=== PATIENT | female | born 1990 | race Caucasian/White ===

== ENCOUNTER 2019-01-19 16:31 | Emergency (ER) | payer SELFPAY ==
[2019-01-19] MEDS ORDERED: MORPHINE 4 MG/ML SYR ONE (16:57)
[2019-01-19] MEDS ORDERED: ONDANSETRON 4 MG/2 ML VIAL ONE (16:57)
[2019-01-19] MEDS ORDERED: NA CHLORIDE 0.9% 1,000 ML ONE (16:57)
[2019-01-19 17:07] LABS: Absolute Lymphocytes (CBC) 1.1 K/uL (0.7-4.9); Basophils % 0.4 % (0-1.3); Hematocrit 39.3 % (36.0-45.0); Lymphocytes % 14.1 % (15.3-44.8); MPV 8.2 fL (7.6-11.3); RBC Red Blood Cell Count 4.46 M/uL (3.86-4.86)
[2019-01-19 17:20] LABS: Potassium 3.9 mmol/L (3.5-5.1)
--- NOTE | 2019-01-19 17:39 | RAD REPORT ---
EXAM DESCRIPTION: CT - Soft Tissue Neck W/Contr CLINICAL HISTORY: Pain and swelling to left jaw - unable to swallow COMPARISON: No comparisons TECHNIQUE All CT scans are performed using dose optimization technique as appropriate and may includ e automated exposure control or mA/KV adjustment according to patient size. FINDINGS: Significant soft tissue swelling is seen about the left aspect of the face mandible. There is reticulation of the subcutaneous fat and skin thickening present. A subperiosteal abscess is like ly present along the anterior margin of the mandible measuring 3 mm in thickness an 18 mm in transver se dimension. Clear etiology for this is not well delineated but may be odontogenic in origin. Mild a djacent soft tissue is present within the inflamed fat, likely enlarged lymph nodes. Multiple enlarged lymph nodes are present in the level I and level II chain. These are likely reactiv e in nature. No prevertebral abscess seen. IMPRESSION: Significant soft tissue swelling is seen about the left aspect of the mandible with subp eriosteal abscess suspected anteriorly as described.
[2019-01-19] MEDS ORDERED: METHYLPREDNISOLONE 125 MG INJ ONE (18:05)
[2019-01-19] MEDS ORDERED: HYDROCODONE/APAP 10/325 TAB ONE (18:06)
[2019-01-19] MEDS ORDERED: METRONIDAZOLE 500mg IVPB 500 MG/100 ML BAG IV ONE (18:07)
[2019-01-19] MEDS ORDERED: CLINDAMYCIN 900MG/D5W 900 MG/50 ML IVPB IV ONE (18:07)
--- NOTE | 2019-01-19 18:22 | EDPHYS ---
Physician Documentation [facility] Name: Chana Penaloza Age: 28 yrs Sex: Female : 1990 Arrival Date: 01/19/2019 Time: 16:34 Bed 14 Private MD: ED Physician Fracisco Weller HPI: 01/19 16:52 This 28 yrs old Female presents to ER via Ambulatory with complaints of Left kdr jaw Facial Swelling. 18:08 The patient presents with pain, swelling. The problem is located in the lower left kdr second molar, lower left first molar, lower left second bicuspid and left submandibular area. Onset: The symptoms/episode began/occurred suddenly, gradually, yesterday. Duration: The symptoms are continuous, and are steadily getting worse. Modifying factors: The symptoms are alleviated by nothing, the symptoms are aggravated by chewing, food, Swallowing. Associated signs and symptoms: The patient has no apparent associated signs or symptoms. Severity of symptoms: At their worst the symptoms were moderate, in the emergency department the symptoms are unchanged. The patient has not experienced similar symptoms in the past. The patient has not recently seen a physician. 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 - Social history:: Smoking status: Patient/guardian denies using tobacco. - Ebola Screening: : No symptoms or risks identified at this time. ROS: 18:08 Constitutional: Negative for fever, chills, and weight loss, Eyes: Negative for injury, kdr pain, redness, and discharge, Neck: Negative for injury, pain, and swelling, Cardiovascular: Negative for chest pain, palpitations, and edema, Respiratory: Negative for shortness of breath, cough, wheezing, and pleuritic chest pain, Abdomen/GI: Negative for abdominal pain, nausea, vomiting, diarrhea, and constipation, Back: Negative for injury and pain. 18:08 ENT: Positive for dental pain, difficulty swallowing, of the left cheek and left mandible. Exam: 18:08 Constitutional: This is a well developed, well nourished patient who is awake, alert, kdr and in no acute distress. Eyes: Pupils equal round and reactive to light, extra-ocular motions intact. Lids and lashes normal. Conjunctiva and sclera are non-icteric and not injected. Cornea within normal limits. Periorbital areas with no swelling, redness, or edema. Neck: Trachea midline, no thyromegaly or masses palpated, and no cervical lymphadenopathy. Supple, full range of motion without nuchal rigidity, or vertebral point tenderness. No Meningismus. Chest/axilla: Normal chest wall appearance and motion. Nontender with no deformity. No lesions are appreciated. 18:08 ENT: Mouth: Lips: normal, Oral mucosa: normal, moderate swelling and tenderness to left mandible, No pain or swelling to left parotid gland/salivary gland.. Vital Signs: 16:38 BP 109 / 73; Pulse 89; Resp 16; Temp 97.6; Pulse Ox 100% ; Weight 54.43 kg; Height 5 la1 ft. 1 in. (154.94 cm); 16:38 Body Mass Index 22.67 (54.43 kg, 154.94 cm) la1 MDM: 18:08 Data reviewed: vital signs, nurses notes, lab test result(s), radiologic studies. kdr Counseling: I had a detailed discussion with the patient and/or guardian regarding: the historical points, exam findings, and any diagnostic results supporting the discharge/admit diagnosis, lab results, radiology results, the need for outpatient follow up. Special discussion: I discussed with the patient/guardian in detail that at this point there is no indication for admission to the hospital. It is understood, however, that if the symptoms persist or worsen the patient needs to return immediately for re-evaluation. 18:21 Patient medically screened. kdr 01/19 16:51 Order name: CBC with Diff; Complete Time: 17:47 kdr 01/19 16:51 Order name: Chem 7; Complete Time: 17:47 kdr 01/19 16:51 Order name: CT Soft Tissue Neck W/contr; Complete Time: 17:47 kdr Administered Medications: 17:00 Drug: NS 0.9% 1000 ml Route: IV; Rate: 1 bolus; Site: right antecubital; tr5 17:01 Drug: morphine 4 mg {Note: RASS:0.} Route: IVP; Site: right antecubital; tr5 17:30 Follow up: Response: Pain is decreased tr5 17:01 Drug: Zofran 4 mg Route: IVP; Site: right antecubital; tr5 18:21 Follow up: Response: Marked relief of symptoms tr5 18:12 Drug: Clindamycin 900 mg Route: IVPB; Infused Over: 30 mins; Site: right antecubital; tr5 18:13 Drug: [place] 10 mg-325 mg 1 tabs {Note: RASS:0.} Route: PO; tr5 18:20 Drug: SOLU-Medrol 125 mg Route: IVP; Site: right antecubital; tr5 18:21 Drug: Flagyl 500 mg Route: PO; tr5 Disposition: 01/19/19 18:21 Discharged to Home. Impression: Dental Abscess left mandible. - Condition is Stable. - Discharge Instructions: Dental Pain, [id number], Dental Abscess, [id number]. - Prescriptions for Augmentin 875- 125 mg Oral Tablet - take 1 tablet by ORAL route every 12 hours for 10 days; 20 tablet. Flagyl 500 mg Oral Tablet - take 1 tablet by ORAL route every 6 hours for 10 days; 40 tablet. Tylenol- Codeine #3 300-30 mg Oral Tablet - take 2 tablets by ORAL route every 6 hours As needed; 12 tablet. Medrol (Nabeel) 4 mg Oral Tablets, Dose Pack - take 1 tablet by ORAL route as directed - follow package instructions; 1 packet. - Medication Reconciliation Form, Thank You Letter, Antibiotic Education, Prescription Opioid Use, Work release form form. - Follow up: Private Physician; When: 2 - 3 days; Reason: If symptoms return, Further diagnostic work-up, Recheck today's complaints, Continuance of care, Re-evaluation by your physician. - Problem is new. - Symptoms have improved. Signatures: Dispatcher [employer] EDND Fracisco Weller MD MD kdr Attema, Lee, RN RN la1 Roberto Carlos Preston RN RN tr5 Corrections: (The following items were deleted from the chart) 19:19 18:21 01/19/2019 18:21 Discharged to Home. Impression: Dental Abscess left mandible. tr5 Condition is Stable. Discharge Instructions: Dental Abscess, [id number]. Prescriptions for Augmentin 875-125 mg Oral Tablet - take 1 tablet by ORAL route every 12 hours for 10 days; 20 tablet, Flagyl 500 mg Oral Tablet - take 1 tablet by ORAL route every 6 hours for 10 days; 40 tablet, Tylenol-Codeine #3 300-30 mg Oral Tablet - take 2 tablets by ORAL route every 6 hours As needed; 12 tablet, Medrol (Nabeel) 4 mg Oral Tablets, Dose Pack - take 1 tablet by ORAL route as directed - follow package instructions; 1 packet. and Forms are Medication Reconciliation Form, Thank You Letter, Antibiotic Education, Prescription Opioid Use. Follow up: Private Physician; When: 2 - 3 days; Reason: If symptoms return, Further diagnostic work-up, Recheck today's complaints, Continuance of care, Re-evaluation by your physician. Problem is new. Symptoms have improved. kdr
--- NOTE | 2019-01-19 18:22 | ER ---
Nurse's Notes [facility] Name: Chana Penaloza Age: 28 yrs Sex: Female : 1990 Arrival Date: 01/19/2019 Time: 16:34 Bed 14 Private MD: Diagnosis: Dental Abscess left mandible Presentation: 01/19 16:37 Presenting complaint: Patient states: I woke up with left sided facial swelling this la1 morning, hurts when I swallow or touch it. Transition of care: patient was not received from another setting of care. Onset of symptoms was January 19, 2019. Risk Assessment: Do you want to hurt yourself or someone else? Patient reports no desire to harm self or others. Initial Sepsis Screen: Does the patient meet any 2 criteria? No. Patient's initial sepsis screen is negative. Does the patient have a suspected source of infection? No. Patient's initial sepsis screen is negative. Care prior to arrival: None. 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 - Social history:: Smoking status: Patient/guardian denies using tobacco. - Ebola Screening: : No symptoms or risks identified at this time. Screenin:50 Abuse screen: Denies threats or abuse. Nutritional screening: No deficits noted. tr5 Tuberculosis screening: No symptoms or risk factors identified. Fall Risk None identified. Assessment: 16:50 General: Appears uncomfortable, Behavior is calm, cooperative, appropriate for age. tr5 Pain: Complains of pain in left jaw Pain does not radiate. Pain currently is 9 out of 10 on a pain scale. Quality of pain is described as aching, throbbing, Pain began gradually, Is continuous, Alleviated by nothing. Aggravated by eating, drinking. Neuro: Level of Consciousness is awake, alert, obeys commands, Oriented to person, place, time, Cement Sack Breaker are equal bilaterally Moves all extremities. Gait is steady. Cardiovascular: Heart tones present Capillary refill < 3 seconds Pulses are all present. Edema To L jaw. Respiratory: Airway is patent Respiratory effort is even, unlabored, Respiratory pattern is regular, symmetrical. GI: No signs and/or symptoms were reported involving the gastrointestinal system. : No signs and/or symptoms were reported regarding the genitourinary system. EENT: Poor dentition noted. Derm: Abscess located on left jaw. Musculoskeletal: No signs and/or symptoms reported regarding the musculoskeletal system. 18:00 Reassessment: Patient appears in no apparent distress at this time. Patient and/or tr5 family updated on plan of care and expected duration. Pain level reassessed. Patient is alert, oriented x 3, equal unlabored respirations, skin warm/dry/pink. Vital Signs: 16:38 BP 109 / 73; Pulse 89; Resp 16; Temp 97.6; Pulse Ox 100% ; Weight 54.43 kg; Height 5 la1 ft. 1 in. (154.94 cm); 16:38 Body Mass Index 22.67 (54.43 kg, 154.94 cm) la1 ED Course: 16:34 Patient arrived in ED. mr 16:37 Triage completed. la1 16:38 Fracisco Weller MD is Attending Physician. kdr 16:38 Arm band placed on left wrist. la1 16:50 Bed in low position. Call light in reach. Side rails up X 1. Adult w/ patient. tr5 16:50 Initial lab(s) drawn, by me, sent to lab. Inserted saline lock: 20 gauge in right tr5 antecubital area, using aseptic technique. 16:54 Roberto Carlos Preston, RN is Primary Nurse. tr5 17:[address] via wheelchair. tr5 17:24 CT Soft Tissue Neck W/contr In Process Unspecified. EDMS 17:27 CT completed. Patient tolerated procedure well. Note: consent for ct exam w/o upt bq signed. Patient moved back from CT. 19:17 No provider procedures requiring assistance completed. IV discontinued. tr5 Administered Medications: 17:00 Drug: NS 0.9% 1000 ml Route: IV; Rate: 1 bolus; Site: right antecubital; tr5 17:01 Drug: morphine 4 mg {Note: RASS:0.} Route: IVP; Site: right antecubital; tr5 17:30 Follow up: Response: Pain is decreased tr5 17:01 Drug: Zofran 4 mg Route: IVP; Site: right antecubital; tr5 18:21 Follow up: Response: Marked relief of symptoms tr5 18:12 Drug: Clindamycin 900 mg Route: IVPB; Infused Over: 30 mins; Site: right antecubital; tr5 18:13 Drug: [place] 10 mg-325 mg 1 tabs {Note: RASS:0.} Route: PO; tr5 18:20 Drug: SOLU-Medrol 125 mg Route: IVP; Site: right antecubital; tr5 18:21 Drug: Flagyl 500 mg Route: PO; tr5 Outcome: 18:21 Discharge ordered by . kellen 19:17 Discharged to home ambulatory. tr5 19:17 Condition: stable 19:17 Discharge instructions given to patient, Instructed on discharge instructions, follow up and referral plans. medication usage, Demonstrated understanding of instructions, follow-up care, medications, Prescriptions given X 4. 19:19 Patient left the ED. tr5 Signatures: Dispatcher [employer] EDMS Fracisco Weller MD MD kdr Rivera, Mary mr Quilty, Betty bq Attema, Lee, RN RN Roberto Carlos Rosado RN RN tr5
[2019-01-19 19:44] VITALS: BP 109/73; TEMP 97.6; O2SAT 100
== END 2019-01-19 19:19 | disposition home or self-care (01) ==
LOC: ER 16:31
DX: K04.7 Periapical abscess without sinus (principal)
CPT/HCPCS: 36415; 70491; 80048; 85025; 96374; 96375; 99284; J2405; J2930; J7030; Q9967

== ENCOUNTER 2019-05-26 12:07 | Emergency (ER) | payer SELFPAY ==
--- OUTSIDE RECORDS SUMMARY | 2019-05-26 12:09 | XMS REPORT ---
:1990 [facility] Address [address] [place] [address] Care Team Providers Name Role Phone Unavailable Unavailable Unavailable Problems This patient has no known problems. Allergies, Adverse Reactions, Alerts This patient has no known allergies or adverse reactions. Medications This patient has no known medications. Encounters Start End Encounter Admission Attending Care Care Encounter Date/Time Date/Time Type Type Clinicians Facility Department ID 2018-04-08 2018-04-08 Emergency [facility] MED [id number] 16:32:17 16:32:17 2018-04-08 2018-04-08 Emergency [facility] [id number] 16:31:11 16:31:11
[2019-05-26 12:43] LABS: Urine Blood NEGATIVE (NEG); Urine Glucose NEGATIVE (NEG); Urine Protein NEGATIVE (NEG); Urine Specific Gravity 1.025 (1.005-1.030); Urine pH 7.5 (5.0-7.0)
[2019-05-26 12:51] LABS: Absolute Lymphocytes (CBC) 1.3 K/uL (0.7-4.9); Basophils % 0.6 % (0-1.3); Lymphocytes % 15.9 % (15.3-44.8); MPV 8.1 fL (7.6-11.3); RBC Red Blood Cell Count 4.78 M/uL (3.86-4.86)
[2019-05-26 13:01] LABS: Potassium 3.8 mmol/L (3.5-5.1)
[2019-05-26 13:11] LABS: Urine Bacteria 20-50 /HPF (<20); Urine Culture Reflex Order REFLEXED; Urine Mucus 2+ /HPF (NONE SEEN); Urine RBC <5 /HPF (NONE SEEN)
--- NOTE | 2019-05-26 13:57 | ER ---
Nurse's Notes [facility] Name: Chana Penaloza Age: 29 yrs Sex: Female : 1990 Arrival Date: 05/26/2019 Time: 12:10 Bed 24 Private MD: Diagnosis: Acute cystitis Presentation: 05/26 12:21 Presenting complaint: Patient states: body aches, intermittent fever, congestion and ss fatigue x 2 weeks. Transition of care: patient was not received from another setting of care. Onset of symptoms was May 11, 2019. Risk Assessment: Do you want to hurt yourself or someone else? Patient reports no desire to harm self or others. Initial Sepsis Screen: Does the patient meet any 2 criteria? HR > 90 bpm. Does the patient have a suspected source of infection? No. Patient's initial sepsis screen is negative. Care prior to arrival: None. 12:21 Method Of Arrival: Ambulatory ss 12:21 Acuity: JACKELINE 4 ss Historical: - Allergies: 12:23 No Known Allergies; ss - Home Meds: 12:23 None [Active]; ss - PMHx: 12:23 PTSD; ss - PSHx: 12:23 R wrist; ss - Immunization history:: Adult Immunizations up to date. - Coronavirus screen:: The patient has NOT traveled to [place] in the past 14 days. Proceed with normal triage process as indicated. - Social history:: Smoking status: Patient reports the use of cigarette tobacco products, smokes one-half pack cigarettes per day. - Ebola Screening: : Patient denies exposure to infectious person Patient denies travel to an Ebola-affected area in the 21 days before illness onset. Screenin:23 Abuse screen: Denies threats or abuse. Denies injuries from another. Nutritional ss screening: No deficits noted. Tuberculosis screening: Never had TB. Fall Risk None identified. Assessment: 12:23 General: Appears in no apparent distress. comfortable, Behavior is Reports fever for > ss 3 days, feeling ill for x 2 weeks. fatigue for >3 days. Pain: Complains of pain in general body aches Pain currently is 4 out of 10 on a pain scale. Neuro: Level of Consciousness is awake, alert, obeys commands, Oriented to person, place, time, situation. Cardiovascular: Capillary refill < 3 seconds is brisk in bilateral fingers. Respiratory: Respiratory effort is even, unlabored, Respiratory pattern is regular, symmetrical. Respiratory: Reports cough that is non-productive, Breath sounds are clear bilaterally. GI: Abdomen is non-distended, Patient currently denies abdominal pain, nausea, vomiting. : Denies burning with urination, urinary frequency. EENT: Nares are clear. EENT: Reports nasal congestion. Derm: Skin is intact, is healthy with good turgor, Skin is dry, Skin is pink, warm \T\ dry. normal. Musculoskeletal: Circulation, motion, and sensation intact. Range of motion: intact in all extremities, Swelling absent. 13:30 Reassessment: Patient appears in no apparent distress at this time. Patient and/or ss family updated on plan of care and expected duration. Pain level reassessed. Patient is alert, oriented x 3, equal unlabored respirations, skin warm/dry/pink. Vital Signs: 12:23 BP 119 / 87; Pulse 94; Resp 17; Temp 97.7(O); Pulse Ox 99% on R/A; Weight 54.43 kg; ss Height 5 ft. 2 in. (157.48 cm); Pain 4/10; 12:23 Body Mass Index 21.95 (54.43 kg, 157.48 cm) ED Course: 12:10 Patient arrived in ED. mr 12:20 Danny Barnes PA is PHCP. jr8 12:20 Young Hair MD is Attending Physician. jr8 12:21 Sherry Tineo, SU is Primary Nurse. 12:22 Triage completed. 12:23 Arm band placed on right wrist. ss 12:23 Patient has correct armband on for positive identification. Bed in low position. Call ss light in reach. 12:43 CBC with Diff Sent. 12:43 Basic Metabolic Panel Sent. 12:43 Urine --Ancillary (enter results) Sent. 12:43 Urine Dipstick--Ancillary (enter results) Sent. 12:43 Urine Microscopic Only Sent. 14:03 No provider procedures requiring assistance completed. IV discontinued, intact, ss bleeding controlled, No redness/swelling at site. Pressure dressing applied. Administered Medications: No medications were administered Outcome: 13:55 Discharge ordered by . jr8 14:03 Discharged to home ambulatory. 14:03 Condition: good 14:03 Discharge instructions given to patient, Instructed on discharge instructions, follow up and referral plans. medication usage, Demonstrated understanding of instructions, follow-up care, medications, Prescriptions given X 1. 14:04 Patient left the ED. Signatures: Wendy Shields Shelby, RN RN Danny Barnes PA PA jr8
--- NOTE | 2019-05-26 13:58 | EDPHYS ---
Physician Documentation [facility] Name: Chana Penaloza Age: 29 yrs Sex: Female : 1990 Arrival Date: 05/26/2019 Time: 12:10 Bed 24 Private MD: ED Physician Young Hair HPI: 05/26 13:29 This 29 yrs old Female presents to ER via Ambulatory with complaints of achy, jr8 flank pain. 13:29 The patient complains of pain in the right flank. The pain does not radiate. Onset: The jr8 symptoms/episode began/occurred gradually, 2 week(s) ago. Modifying factors: The symptoms are alleviated by nothing. the symptoms are aggravated by nothing. Associated signs and symptoms: The patient has no apparent associated signs or symptoms. Severity of pain: At its worst the pain was mild in the emergency department the pain is unchanged. The patient has not experienced similar symptoms in the past. The patient has not recently seen a physician. Stated that she has felt achy. Has had flank pain on right side on/off as well that is not going away . Historical: - Allergies: 12:23 No Known Allergies; ss - Home Meds: 12:23 None [Active]; ss - PMHx: 12:23 PTSD; ss - PSHx: 12:23 R wrist; ss - Immunization history:: Adult Immunizations up to date. - Coronavirus screen:: The patient has NOT traveled to [place] in the past 14 days. Proceed with normal triage process as indicated. - Social history:: Smoking status: Patient reports the use of cigarette tobacco products, smokes one-half pack cigarettes per day. - Ebola Screening: : Patient denies exposure to infectious person Patient denies travel to an Ebola-affected area in the 21 days before illness onset. ROS: 13:29 Eyes: Negative for injury, pain, redness, and discharge, ENT: Negative for injury, jr8 pain, and discharge, Neck: Negative for injury, pain, and swelling, Cardiovascular: Negative for chest pain, palpitations, and edema, Respiratory: Negative for shortness of breath, cough, wheezing, and pleuritic chest pain, Abdomen/GI: Negative for abdominal pain, nausea, vomiting, diarrhea, and constipation, MS/Extremity: Negative for injury and deformity, Skin: Negative for injury, rash, and discoloration, Neuro: Negative for headache, weakness, numbness, tingling, and seizure. 13:29 Back: Positive for flank pain, on the right. Exam: 13:29 Eyes: Pupils equal round and reactive to light, extra-ocular motions intact. Lids and jr8 lashes normal. Conjunctiva and sclera are non-icteric and not injected. Cornea within normal limits. Periorbital areas with no swelling, redness, or edema. ENT: Nares patent. No nasal discharge, no septal abnormalities noted. Tympanic membranes are normal and external auditory canals are clear. Oropharynx with no redness, swelling, or masses, exudates, or evidence of obstruction, uvula midline. Mucous membranes moist. Neck: Trachea midline, no thyromegaly or masses palpated, and no cervical lymphadenopathy. Supple, full range of motion without nuchal rigidity, or vertebral point tenderness. No Meningismus. Cardiovascular: Regular rate and rhythm with a normal S1 and S2. No gallops, murmurs, or rubs. Normal PMI, no JVD. No pulse deficits. Respiratory: Lungs have equal breath sounds bilaterally, clear to auscultation and percussion. No rales, rhonchi or wheezes noted. No increased work of breathing, no retractions or nasal flaring. Abdomen/GI: Soft, non-tender, with normal bowel sounds. No distension or tympany. No guarding or rebound. No evidence of tenderness throughout. Back: No spinal tenderness. No costovertebral tenderness. Full range of motion. Skin: Warm, dry with normal turgor. Normal color with no rashes, no lesions, and no evidence of cellulitis. MS/ Extremity: Pulses equal, no cyanosis. Neurovascular intact. Full, normal range of motion. Neuro: Awake and alert, GCS 15, oriented to person, place, time, and situation. Cranial nerves II-XII grossly intact. Motor strength 5/5 in all extremities. Sensory grossly intact. Cerebellar exam normal. Normal gait. Vital Signs: 12:23 BP 119 / 87; Pulse 94; Resp 17; Temp 97.7(O); Pulse Ox 99% on R/A; Weight 54.43 kg; Height 5 ft. 2 in. (157.48 cm); Pain 4/10; 12:23 Body Mass Index 21.95 (54.43 kg, 157.48 cm) ss MDM: 12:21 Patient medically screened. [facility] 13:54 Data reviewed: vital signs, nurses notes, lab test result(s), radiologic studies, [facility] ultrasound. Data interpreted: Pulse oximetry: on room air is 99 %. Interpretation: normal. Counseling: I had a detailed discussion with the patient and/or guardian regarding: the historical points, exam findings, and any diagnostic results supporting the discharge/admit diagnosis, lab results, radiology results, the need for outpatient follow up, a family practitioner, to return to the emergency department if symptoms worsen or persist or if there are any questions or concerns that arise at home. 05/26 12:32 Order name: Urine Microscopic Only 05/26 12:33 Order name: Urine Dipstick--Ancillary (enter results) 05/26 12:33 Order name: Urine --Ancillary (enter results) 05/26 12:34 Order name: CBC with Diff [facility] 05/26 12:34 Order name: Basic Metabolic Panel [facility] 05/26 12:44 Order name: Urine --Ancillary; Complete Time: 13:12 EDOK 05/26 12:34 Order name: IV; Complete Time: 12:43 [facility] 05/26 12:34 Order name: US Rp Exam Complete [facility] 05/26 12:44 Order name: Urine Dipstick-Ancillary; Complete Time: 13:11 EDOK 05/26 13:02 Order name: CBC with Automated Diff; Complete Time: 13:11 EDMS 05/26 13:02 Order name: Basic Metabolic Panel; Complete Time: 13:11 EDOK 05/26 13:14 Order name: Urine Microscopic Only; Complete Time: 13:14 EDMS Administered Medications: No medications were administered Disposition: 05/27 08:31 Co-signature as Attending Physician, Young Hair MD I agree with the assessment and khushbu plan of care. Disposition: 05/26/19 13:55 Discharged to Home. Impression: Acute cystitis. - Condition is Stable. - Discharge Instructions: Urinary Tract Infection, Adult. - Prescriptions for Macrobid 100 mg Oral Capsule - take 1 capsule by ORAL route every 12 hours for 7 days; 14 capsule. - Work release form, Medication Reconciliation Form, Thank You Letter, Antibiotic Education, Prescription Opioid Use form. - Follow up: Private Physician; When: 2 - 3 days; Reason: Recheck today's complaints, Continuance of care, Re-evaluation by your physician. - Problem is new. - Symptoms have improved. Signatures: Dispatcher [employer] Young Serrano MD MD cha Smirch, Shelby, RN RN Danny Julian PA PA jr8 Corrections: (The following items were deleted from the chart) 05/26 14:04 13:55 05/26/2019 13:55 Discharged to Home. Impression: Acute cystitis. Condition is ss Stable. Forms are Medication Reconciliation Form, Thank You Letter, Antibiotic Education, Prescription Opioid Use. Follow up: Private Physician; When: 2 - 3 days; Reason: Recheck today's complaints, Continuance of care, Re-evaluation by your physician. Problem is new. Symptoms have improved. jr8
[2019-05-26 14:59] VITALS: BP 119/87; TEMP 97.7; O2SAT 99
--- NOTE | 2019-05-26 15:15 | RAD REPORT ---
EXAM DESCRIPTION: US - Renal Ultrasound-Complete - 05/26/2019 2:49 pm CLINICAL HISTORY: . Right flank pain COMPARISON: None. FINDINGS: The right kidney measures 10 cm with borderline increased echotexture The left kidney measures 10 centimeters with borderline increased echotexture . Hydronephrosis is not seen. No gross abnormality of bladder IMPRESSION: Borderline increased renal echotexture. This may indicate parenchymal disease
== END 2019-05-26 14:04 | disposition home or self-care (01) ==
LOC: ER 12:07
DX: N30.00 Acute cystitis without hematuria (principal); F17.210 Nicotine dependence, cigarettes, uncomplicated
CPT/HCPCS: 36415; 76770; 80048; 81003; 81015; 81025; 85025; 87086; 87088; 99283

== ENCOUNTER 2019-09-01 02:45 | Emergency (ER) | payer SELFPAY ==
--- OUTSIDE RECORDS SUMMARY | 2019-09-01 02:48 | XMS REPORT ---
:1990 Author Organization [facility] t Address [address] [place] [address] Care Team Providers Name Role Phone Unavailable Unavailable Unavailable Problems Condition Condition Condition Status Onset Resolution Last Treating Co mments Source Name Details Category Date Date Treatment Clinician Date Pain, Pain, Disease Active [facility] Allergies, Adverse Reactions, Alerts This patient has no known allergies or adverse reactions. Social History Social Habit Start Date Stop Date Quantity Comments Source Sex Assigned At [facility] alth Alcohol intake 2018-04-08 2018-04-08 [facility] lt 00:00:00 00:00:00 Smoking Status Start Date Stop Date Source Never smoker [facility] Medications Ordered Filled Start Stop Current Ordering Indication Dosage Frequency Signature Comments Components Source Medication Medication Date Date Medication? Clinician (SIG) Name Name ibuprofen 2017-04 Yes Pain, 800mg Take 1 Suhas is (MOTRIN) 2-30 dental tablet by [facility] th 800 mg 00:00: mouth tablet 00 every 8 hours as needed for Pain. acetaminoph 2017-04 Yes Pain, 1{tbl} Take 1 H arris en-codeine 2-30 dental tablet by alth (TYLENOL/CO 00:00: mouth DEINE #3) 00 every 4 300-30 mg hours as per tablet needed for Pain. Procedures This patient has no known procedures. Plan of Care Planned Activity Planned Date Details Comments Source Future Scheduled Test 2020-01-09 00:00:00 IMM Influenza [facility] Seasonal Jan to June (>/= 19 yrs) [code = IMM Influenza Seasonal Jan to June (>/= 19 yrs)] Future Scheduled Test 2010 00:00:00 Cervical Cancer Scrn [facility] (3 Yrs) [code = Cervical Cancer [facility] (3 Yrs)] Encounters Start End Encounter Admission Attending Care Care Encounter Source Date/Time Date/Time Type Type Clinicians Facility Department ID 2018-04-08 2018-04-08 Emergency [facility] [id number] Dandy 16:32:17 16:32:17 Health 2018-04-08 2018-04-08 Emergency [facility] [id number] Mariana Dorman 16:31:11 16:31:11 Health Results This patient has no known results.
--- OUTSIDE RECORDS SUMMARY | 2019-09-01 02:48 | XMS REPORT | Clinical Summary ---
:1990 Author Organization [facility] Address [address] [place] [address] Care Team Providers Name Role Phone Unavailable Primary Care Provider Unavailable Allergies No Known Allergies Medications Medication Sig Dispensed Refills Start Date End Date Status ibuprofen (MOTRIN) 800 Take 1 tablet by 30 tablet 0 04/08/2018 Active mg tabletIndications: mouth every 8 Pain, dental hours as needed for Pain. acetaminophen-codeine Take 1 tablet by 13 tablet 0 04/08/2018 Active (TYLENOL/CODEINE #3) mouth every 4 300-30 mg per hours as needed tabletIndications: for Pain. Pain, dental Active Problems Problem Noted Date Pain, dental Social History Tobacco Use Types Packs/Day Years Used Date Never Smoker Smokeless Tobacco: Never Used Alcohol Use Drinks/Week oz/Week Comments Yes Sex Assigned at Date Recorded Not on file Job Start Date Occupation Industry Not on file Not on file Not on file Travel History Travel Start Travel End No recent travel history available. Last Filed Vital Signs Not on file Plan of Treatment Health Maintenance Due Date Last Done Comments Cervical Cancer Scrn (3 Yrs) 2010 IMM Influenza Seasonal Jan to June (>/= 19 yrs) 01/09/2020 Results Not on fileafter 08/31/2018 Insurance Payer Benefit Plan / Subscriber ID Effective Dates Phone Addre ss Type Group [employer] S[employer]F-PAY xxxxxxxxx 2018-Pres [phone] [id number] [employer] SELF-PAY UNSCREENED ent [address] [place] [id number]
--- NOTE | 2019-09-01 03:51 | ER ---
Nurse's Notes [facility] Name: Chana Penaloza Age: 29 yrs Sex: Female : 1990 Arrival Date: 09/01/2019 Time: 02:47 Bed Waiting Private MD: Diagnosis: ED Course: 08/31 02:47 Patient arrived in ED. cl3 03:50 Patient's name was called from ER lobby. No response. Unable to locate patient. Will lp1 disposition as left without being seen by a provider. Administered Medications: No medications were administered Outcome: 03:50 Patient left the ED. lp1 Signatures: Michelle Montilla RN RN lp1 Chante Fernandez cl3
== END 2019-09-01 03:50 | disposition left against medical advice (07) ==
LOC: ER 02:45
DX: Z02.9 Encounter for administrative examinations, unspecified (principal); Z53.21 Procedure and treatment not carried out due to patient leaving prior to being seen by health care provider